=== PATIENT | male | born 1945 | race Caucasian/White ===

== ENCOUNTER → 2020-12-21 | Outpatient (CLI) | payer OTHER ==
[~2020-12-21] MED LIST: ASA81BEC PO; BYSTOLIC10 MG PO; CO-ENZYME Q-1010 MG PO; COZAAR 25 MG TA25 M2 PO; CRESTOR10 MG PO; IPRATROPIUM BRO15 ML NASAL; TIMOLOL MALEATE5 M2 OPHTHALMIC; UNICOMPLEX M TA1 TA1 PO
== END ==
LOC: SJCVC 14:45
PROVIDERS: ATTEND Internal Medicine Cardiovascular Disease
DX: R94.39 Abnormal result of other cardiovascular function study (principal); I10 Essential (primary) hypertension; E78.00 Pure hypercholesterolemia, unspecified; R07.9 Chest pain, unspecified; K21.9 Gastro-esophageal reflux disease without esophagitis; R68.89 Other general symptoms and signs; F17.290 Nicotine dependence, other tobacco product, uncomplicated; Z72.89 Other problems related to lifestyle; Z79.82 Long term (current) use of aspirin; Z79.899 Other long term (current) drug therapy

== ENCOUNTER → 2020-12-22 | Outpatient (CLI) | payer OTHER ==
[~2020-12-22] VITALS: Ht 180.3 cm; Wt 99.8 kg
[2020-12-22 11:07] VITALS: BP 146/67
[2020-12-22 11:17] LABS: ALBUMIN 4.1 g/dL (3.4-5.0); CREATININE 1.1 mg/dL (0.7-1.3); POTASSIUM 4.5 mmol/L (3.5-5.1); TOTAL BILIRUBIN 0.5 mg/dL (0.2-1.0); TOTAL PROTEIN 7.6 g/dL (6.4-8.2)
--- NOTE | 2020-12-23 12:31 | CATHLAB ---
[facility] [place] [address] INVASIVE PROCEDURE REPORT Name: JOE BAUMANN Room #: REG JERALD Hazel.#: [id number] Admission: 12/22/20 Attend Phys: Brett Villatoro MD, Discharge: Date of : 43 Report #: [id number] THIS REPORT FOR: cc: Dhaval Lea MD, Neal A. MD Mancuso, Gerald M. MD [facility] ~ APPROVED REPORT Study performed: 12/22/2020 10:43:06 Patient Details Patient Status: Out-Patient Room #: The patient is a 75 year-old male Event Personnel Brett Villatoro 3D Animator, Oumar Saunders RN RN, Anais Howard RTR, Guy Juarez Jordan RTR Monitor Procedures Performed Art Access - R femoral artery* Left Heart Cath w/or w/o Coronaries [id number] [facility] FFR [id number] FFR Hemostasis w/ Mynx Abdominal Aortography [id number] 64504 Initial Mod Sed Same Phys/QHP Gr5y 323705 38502 Mod Sed Same Phys/QHP Ea [id number] Indication Positive stress test Procedure Narrative The Right Groin^ was infiltrated with 1% Lidocaine subcutaneous anesthesia. A PINNACLE 6FR Sheath #[id number] sheath was inserted into the RFA^. Coronary angiography was performed using coronary diagnostic catheters. The right coronary system was accessed and visualized with a JR4 catheter. The left coronary system was accessed and visualized with a JL4 catheter. The left ventricle was accessed and visualized with a PIGTAIL catheter. Left ventricular/Aortic Valve gradient assessed via catheter pullback. Left ventriculogram was performed in 30 degree projection. An aortogram of the abdominal aorta was performed. Closure device was deployed with a 6 Fr 6/7F MYNXGRIP. The patient tolerated the procedure well and there were no complications associated with the procedure. There was no hematoma. Intraoperative Conscious Sedation [facility] [address] [place] [address] INVASIVE PROCEDURE REPORT Name: JOE BAUMANN TRUNG [id number] Admission: 12/22/20 Attend Phys: Brett Villatoro, Discharge: Date of : 43 Report #: [id number] Sedation start time: 11:58 Case end Time: 12:55 Fentanyl 50 mcg Versed 2.0 mg Fluoro Time: 11.39 minutes Dose: DAP 18147.30 cGycm2 1400 mGy Contrast Type and Amount: Visipaque 235 ml Hemodynamics The aortic pressure is 144/62 mmHg with a mean of 78 mmHg. The left ventricular pressure is 124/3 mmHg with a mean of mmHg. The left ventricular end diastolic pressure is 27 mmHg. PCI Technique Lesion Percutaneous coronary intervention was performed on the mid left anterior descending artery segment. A LAUNCHER 6FR JL4 #[id number] Guide Catheter was used to engage the ostium. A Aeris Pressure Wire 175 cm 224173 Interventional Guidewire was used to cross the lesion. BALLOON DILATION TREK RX 2.5 X 12 balloon was used to navigate the Aeris pressure wire across the lesion. COMMENTS FFR was performed on mid LAD. Pre FFR = 1.00 FFR = .96 Conclusion #1. Normal left jugular size and systolic function EF 60% #2 mildly tortuous abdominal aorta without aneurysm mild calcific plaquing is noted. #3 left main with moderate calcification mild disease giving rise to LAD and circumflex. #4 the LAD is mildly calcified proximally and then eccentric lesion approaching 70% at the septal takeoff. FFR was performed 0.96. Physiologic data does not support intervention currently. Vessel well-preserved distally. #5 circumflex OM is a large vessel although nondominant. Eccentric first OM lesion of 50 to 60% at its takeoff. No flow-limiting disease otherwise noted. #6 large dominant right coronary with mild disease giving rise to PDA and CHET. Recommendations and plan: Continue aggressive risk factor [address] [address] INVASIVE PROCEDURE REPORT Name: JOE BAUMANN Room #: JONAH Dukes#: [id number] Admission: 12/22/20 Attend Phys: Brett Villatoro, Discharge: Date of : 43 Report #: [id number] modification. No indication for current coronary intervention based on FFR data moderate proximal LAD lesion will follow closely physiologic stress testing to be repeated. <ELECTRONICALLY SIGNED> By: Brett Villatoro MD, FACC 12/23/20 1231 1231 1231 Brett Villatoro MD, FACC /INF
== END | disposition home or self-care (01) ==
LOC: CATH 06:26
PROVIDERS: ATTEND Internal Medicine Cardiovascular Disease
DX: R94.39 Abnormal result of other cardiovascular function study (principal); I25.10 Atherosclerotic heart disease of native coronary artery without angina pectoris; I70.0 Atherosclerosis of aorta; I10 Essential (primary) hypertension; E78.5 Hyperlipidemia, unspecified; K21.9 Gastro-esophageal reflux disease without esophagitis; Z79.82 Long term (current) use of aspirin; Z79.899 Other long term (current) drug therapy; Z98.890 Other specified postprocedural states

== ENCOUNTER → 2021-03-23 | Outpatient (CLI) | payer OTHER | LOC: SJCVC 09:36 | PROVIDERS: ATTEND Internal Medicine Cardiovascular Disease | DX: R94.31 Abnormal electrocardiogram [ECG] [EKG] (principal); R00.1 Bradycardia, unspecified; I25.10 Atherosclerotic heart disease of native coronary artery without angina pectoris; I10 Essential (primary) hypertension; E78.00 Pure hypercholesterolemia, unspecified; E78.2 Mixed hyperlipidemia; E78.5 Hyperlipidemia, unspecified; F17.290 Nicotine dependence, other tobacco product, uncomplicated; Z79.82 Long term (current) use of aspirin; Z79.899 Other long term (current) drug therapy; Z72.89 Other problems related to lifestyle ==

== ENCOUNTER → 2021-04-27 | Outpatient (CLI) | payer OTHER | LOC: SJCVCIMAG 09:20 | PROVIDERS: ATTEND Internal Medicine Cardiovascular Disease | DX: I25.10 Atherosclerotic heart disease of native coronary artery without angina pectoris (principal); E78.5 Hyperlipidemia, unspecified; I10 Essential (primary) hypertension; F17.200 Nicotine dependence, unspecified, uncomplicated; Z95.818 Presence of other cardiac implants and grafts; Z72.89 Other problems related to lifestyle; Z79.82 Long term (current) use of aspirin; Z79.899 Other long term (current) drug therapy ==